=== PATIENT | female | born 1960 | race Hispanic/Latino ===

== ENCOUNTER → 2023-11-27 18:35 | Outpatient (REF) | payer OTHER, SELFPAY | LOC: RAD 18:35 | PROVIDERS: ATTENDING PHYSICIAN Nurse Practitioner Family; FAMILY PHYSICIAN Emergency Medicine | DX: J06.9 Acute upper respiratory infection, unspecified (principal) | CPT/HCPCS: 71046 ==

== ENCOUNTER → 2025-01-17 09:49 | Outpatient (REF) | payer OTHER, SELFPAY | LOC: WDC 09:49 | PROVIDERS: ATTENDING PHYSICIAN Obstetrics & Gynecology Gynecology; FAMILY PHYSICIAN Emergency Medicine | DX: N64.4 Mastodynia (principal) | CPT/HCPCS: 77062; 77066 ==